=== PATIENT | male | born 1980 | race Caucasian/White ===

== ENCOUNTER 2017-08-21 23:14 | Emergency (ER) | payer OTHER ==
[~2017-08-21] VITALS: Ht 188 cm; Wt 79.4 kg
--- OUTSIDE RECORDS SUMMARY | ~2017-08-21 | XMS ---
Demographics + + + | Address | [address] | | | [place] [address] | + + + | Preferred Language | Unknown | + + + | Marital Status | Unknown | + + + | Lutheran Affiliation | Unknown | + + + | Race | Unknown | + + + | Ethnic Group | Unknown | + + + Author + + + | Author | [facility] | + + + | Organization | [facility] | + + + | Address | [address] | | | [place] [address] | + + + | Phone | | + + + Care Team Providers + + + + | Care Doughnut Icer Machine Name | Role | Phone | + + + + Unavailable | Unavailable | + + + + PROBLEMS Unknown Problems ALLERGIES + + + + +---------+ | Substance | Reaction | Event Type | Date | Status | + + + + +---------+ | Zahra | Unknown | Non Drug | Apr, | Unknown | | | | Allergy | | | + + + + +---------+ SOCIAL HISTORY No smoking Hx information available PLAN OF CARE + +---------+ | Activity | Details | + +---------+ +---+ | | +---+ + + + | Follow Up | prn Reason:null | + + + VITAL SIGNS + + + + | Height | 74 in | 2017-04-29 | + + + + | Weight | 181.2 lbs | 2017-04-29 | + + + + | BMI | 23.26 kg/m2 | 2017-04-29 | + + + + | Temperature | 98.5 degrees Fahrenheit | 2017-04-29 | + + + + | Heart Rate | 71 /min | 2017-04-29 | + + + + | Blood pressure systolic | 132 mm Hg | 2017-04-29 | + + + + | Blood pressure diastolic | 78 mm Hg | 2017-04-29 | + + + + MEDICATIONS No Known Medications RESULTS No Results PROCEDURES + + + + + | Procedure | Date Ordered | Related Diagnosis | Body Site | + + + + + | Est Level II | Apr 29, 2017 | | | | Limited | | | | + + + + + IMMUNIZATIONS No Known Immunizations"
[~2017-08-21 23:14] MED LIST: FLOMAX0.4 MG PO; FLUCONAZOLE150 MG PO; NORCO 5-325 TA1 EACH PO; PROTONIX40 MG PO; SUCRALFATE1 GM/10 ML PO; ZOFRAN ODT4 MG PO
== END 2017-08-22 01:25 | disposition home or self-care (01) ==
LOC: ED 23:14
PROC: 0RSK4ZZ Reposition Left Shoulder Joint, Percutaneous Endoscopic Approach (ICD-10-PCS; principal; 2017-08-21)
DX: S43.005A Unspecified dislocation of left shoulder joint, initial encounter (principal); W01.0XXA Fall on same level from slipping, tripping and stumbling without subsequent striking against object, initial encounter
CPT/HCPCS: 23650; 73030; 99284; J7030

== ENCOUNTER 2017-10-12 05:35 | Day surgery (SDC) | payer OTHER ==
[~2017-10-12] VITALS: Ht 188 cm; Wt 79.4 kg
--- NOTE | 2017-10-12 06:18 | NUR ---
CALL LIGHT W/IN REACH. GIRLFRIEND @ [facility]. GUILHERME BOARD COMPLETE WITH PLAN OF CARE. PATIENT VERBALIZES UNDERSTANDING.
--- NOTE | 2017-10-12 09:04 | NUR ---
10/12/17 0904 Priti Willis 0853 - PT ARRIVED TO PACU. OPA IN PLACE
[2017-10-12] MEDS ORDERED: NORCO 10-325 T1 EACH PO (09:58)
--- NOTE | 2017-10-12 10:32 | NUR ---
ICED WATER GIVEN X 3. CRACKERS AND APPLESAUCE EATEN AND PATIENT TOLERATES THAT WELL. PT UP TO BR W/RN STANDBY AND PATIENT AMBULATES WELL. PT REPORTS SUCCESSFUL VOID AND REQ DC HOME. DC INSTRUCTIONS GIVEN IN PRESENCE OF PT'S MOTHER AND BOTH VERBALIZE UNDERSTANDING. PT DRESSES SELF W/ASSISTANCE OF RN AND IS DC HOME W/MOTHER.
--- NOTE | 2017-10-14 07:21 | OR ---
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 PROCEDURE: Open capsular shift of the left shoulder. ANESTHESIA: General. SPECIMENS AND COMPLICATIONS: There are no specimens or complications. BLOOD LOSS: Minimal. WHAT WAS DONE: The patient was taken to the operating room. After anesthesia was induced, airway secured, the patient was placed in a modified beach-chair position and prepped and draped in a routine sterile fashion. A small anterior deltopectoral incision was made beginning just inferior to the tip of the coracoid. The skin was divided sharply. The subcutaneous tissue was bluntly spread and hemostasis was achieved with electrocautery. The clavipectoral fascia was then released. The conjoined tendon was retracted medially. The subscapularis tendon was identified. The circumflex vessels were coagulated. We then used the electrocautery to elevate the subscap off the lesser tuberosity and developed the plane between the capsule and the tendon. We then carried the dissection medially until we had completely mobilized the subscap and we had a flexible muscle tendon unit that we could advance. We then allowed these to retract. We then made a T shaped (laterally based) incision in the capsule. We then advanced the inferiorly, superiorly, and laterally and the superiorly, laterally, and inferiorly imbricating them with interrupted sutures of Ethibond and FiberWire. We then re-attached to the subscapularis with interrupted sutures of #2 FiberWire. At this Electronically Signed By: AALIYAH PRESSLEY MD 10/14/17 0721 PATIENT NAME: NIC SOMMER II OPERATIVE REPORT DATE OF : 82 PHYSICIAN: AALIYAH PRESSLEY MD REPORT #: [id number] REPORT IS CONFIDENTIAL AND NOT TO BE RELEASED WITHOUT AUTHORIZATION [facility] [address] [place], [place] [address] Signed point, we had lost about 15 degrees of external rotation, but the shoulder appeared to be quite stable. The wound was copiously irrigated, and routine wound closure accomplished. A sterile dressing was applied. The patient was awakened to recovery room and where arrived in stable condition. Counts were correct and antibiotic protocols were followed. Aaliyah Pressley MD WFB/MODL /[id number] Electronically Signed By: AALIYAH PRESSLEY MD 10/14/17 0721 PATIENT NAME: NIC SOMMER II OPERATIVE REPORT DATE OF : 82 PHYSICIAN: AALIYAH PRESSLEY MD REPORT #: [id number] REPORT IS CONFIDENTIAL AND NOT TO BE RELEASED WITHOUT AUTHORIZATION
== END 2017-10-12 10:45 | disposition home or self-care (01) ==
LOC: DS 05:35 → OPS 05:35 → DS 06:45 → OPS 06:45
PROVIDERS: Orthopaedic Surgery
PROC: 0RQK0ZZ Repair Left Shoulder Joint, Open Approach (ICD-10-PCS; principal; 2017-10-12 06:45)
DX: M24.412 Recurrent dislocation, left shoulder (principal); Z88.8 Allergy status to other drugs, medicaments and biological substances
CPT/HCPCS: 01620; 64415; 76942; J0330; J0690; J1100; J1885; J2250; J2405; J2704; J2795; J3010; J7120

== ENCOUNTER 2018-05-17 18:23 | Emergency (ER) | payer MEDICAID ==
[~2018-05-17] VITALS: Ht 188 cm; Wt 79.4 kg
[~2018-05-17 18:23] MED LIST changes: +NORCO 10-325 T1 EACH PO
== END 2018-05-17 21:02 | disposition home or self-care (01) ==
LOC: ED 18:23
PROC: 0HQKXZZ Repair Right Lower Leg Skin, External Approach (ICD-10-PCS; principal; 2018-05-17)
DX: S42.035A Nondisplaced fracture of lateral end of left clavicle, initial encounter for closed fracture (principal); S81.811A Laceration without foreign body, right lower leg, initial encounter; V19.9XXA Pedal cyclist (driver) (passenger) injured in unspecified traffic accident, initial encounter
CPT/HCPCS: 12002; 72040; 73030; 90471; 90715; 99283

== ENCOUNTER 2018-10-30 10:12 | Emergency (ER) | payer OTHER ==
[~2018-10-30] VITALS: Ht 188 cm; Wt 79.4 kg
[2018-10-30] MEDS ORDERED: ZOFRAN4 MG PO (11:38)
[2018-10-30] MEDS ORDERED: PANTOPRAZOLE SO40 MG PO (13:12)
== END 2018-10-30 13:28 | disposition home or self-care (01) ==
LOC: ED 10:12
DX: K29.20 Alcoholic gastritis without bleeding (principal); Z87.891 Personal history of nicotine dependence; Z88.6 Allergy status to analgesic agent
CPT/HCPCS: 80053; 83690; 85025; 85610; 96361; 96374; 96375; 99284-25; C9113; G0480; J1200; J2550; J2765; J7030

== ENCOUNTER 2019-08-18 15:25 | Emergency (ER) | payer OTHER ==
[~2019-08-18] VITALS: Ht 188 cm; Wt 79.4 kg
[~2019-08-18 15:25] MED LIST changes: +PANTOPRAZOLE SO40 MG PO; +ZOFRAN4 MG PO
== END 2019-08-18 15:51 | disposition home or self-care (01) ==
LOC: ED 15:25
DX: R05 Cough (principal); R19.7 Diarrhea, unspecified

== ENCOUNTER 2025-08-23 15:51 | Emergency (ER) | payer OTHER ==
[~2025-08-23] VITALS: Ht 188 cm; Wt 82.1 kg
[2025-08-23 17:45] VITALS: BP 137/86
== END 2025-08-23 17:45 | disposition home or self-care (01) ==
LOC: ED 15:51
DX: M25.511 Pain in right shoulder (principal); M25.532 Pain in left wrist; M79.674 Pain in right toe(s); V19.9XXA Pedal cyclist (driver) (passenger) injured in unspecified traffic accident, initial encounter
CPT/HCPCS: 73030; 73110; 73660; 99283